=== PATIENT | female | born 1980 | race Caucasian/White ===

== ENCOUNTER 2022-10-17 15:29 | Emergency (ER) | payer MEDICAID ==
[~2022-10-17] VITALS: Ht 162.6 cm; Wt 77.0 kg
[2022-10-17 16:40] LABS: HEMATOCRIT. 41.4 % (36.0-48.0); HEMOGLOBIN. 14.1 g/dL (12.0-16.0); MEAN CORPUSCULAR HEMOGLOBIN 31.8 pg (28.0-32.0); MEAN CORPUSCULAR VOLUME 93.4 fL (81.0-99.0); MEAN PLATELET VOLUME 11.2 fl (7.4-10.4); PLATELET 201 x1000/uL (130-400); RED BLOOD CELL COUNT 4.43 mill/uL (4.2-5.4); RED CELL DISTRIBUTION WIDTH 14.4 % (11.6-14.6)
[2022-10-17] MEDS ORDERED: SODIUM CHLORIDE 0.9% 500 ML IV ONE (16:45)
[2022-10-17] MEDS ORDERED: KETOROLAC 30MG/ML VIAL IV ONE (16:45)
[2022-10-17 16:47] LABS: CHLORIDE 110 mEq/L (98-107)
[2022-10-17 16:52] LABS: HCG SCREEN NEGATIVE
[2022-10-17 17:27] LABS: PLATELET ESTIMATE NORMAL
[2022-10-17] MEDS ORDERED: KETOROLAC 30MG/ML VIAL IV NR (18:30)
[2022-10-17 21:30] VITALS: BP 153/90
[2022-10-17] MEDS ORDERED: IOHEXOL-300 100 ML BOTTLE ONE (21:47)
== END 2022-10-17 21:42 | disposition home or self-care (01) ==
LOC: ER 15:29
DX: R10.11 Right upper quadrant pain (principal)
CPT/HCPCS: 36415; 74177; 76705; 80053; 83690; 84703; 85025; 93005; 96361; 96374; 99285; J1885; J7040; Q9967

== ENCOUNTER 2023-01-27 16:05 | Emergency (ER) | payer OTHER ==
[~2023-01-27] VITALS: Ht 160 cm; Wt 183.0 kg
[2023-01-27 17:33] VITALS: BP 148/85; PULSE 100; RESP 18; TEMP 98.7
== END 2023-01-27 17:35 | disposition home or self-care (01) ==
LOC: ER 16:05
DX: Z76.0 Encounter for issue of repeat prescription (principal); E11.9 Type 2 diabetes mellitus without complications
CPT/HCPCS: 99281

== ENCOUNTER 2023-11-22 11:51 | Emergency (ER) | payer OTHER ==
[~2023-11-22] VITALS: Ht 152.4 cm; Wt 81.0 kg
[2023-11-22 11:55] VITALS: O2SAT 98
[2023-11-22] MEDS: ACETAMINOPHEN 325MG TABLET PO ONE (13:36)
[2023-11-22 15:10] VITALS: BP 119/74; PULSE 90; RESP 18; TEMP 98.9
== END 2023-11-22 15:21 | disposition home or self-care (01) ==
LOC: ER 11:51
DX: T25.011A Burn of unspecified degree of right ankle, initial encounter (principal); T79.9XXA Unspecified early complication of trauma, initial encounter; Z98.890 Other specified postprocedural states; Z86.59 Personal history of other mental and behavioral disorders; X08.8XXA Exposure to other specified smoke, fire and flames, initial encounter; Y93.89 Activity, other specified; Y92.89 Other specified places as the place of occurrence of the external cause; Y99.8 Other external cause status
CPT/HCPCS: 99291